=== PATIENT | male | born 1980 | race African-American/Black ===

== ENCOUNTER 2020-12-20 20:51 | Emergency (ER) | payer MEDICAID ==
[~2020-12-20] VITALS: Ht 185.4 cm; Wt 100.0 kg
[2020-12-20 22:31] VITALS: BP 157/91
== END 2020-12-20 23:03 | disposition home or self-care (01) ==
LOC: ER 20:51 → EDBD 20:51 → ER 23:03
DX: F16.129 Hallucinogen abuse with intoxication, unspecified (principal); R03.0 Elevated blood-pressure reading, without diagnosis of hypertension; F17.200 Nicotine dependence, unspecified, uncomplicated
CPT/HCPCS: 82962; 93005; 99283

== ENCOUNTER 2021-03-26 01:50 | Emergency (ER) | payer MEDICAID, OTHER ==
[~2021-03-26] VITALS: Ht 188 cm; Wt 90.0 kg
[2021-03-26 02:39] VITALS: BP 125/70
== END 2021-03-26 10:10 | disposition home or self-care (01) ==
LOC: ER 01:50
DX: R45.851 Suicidal ideations (principal); F19.10 Other psychoactive substance abuse, uncomplicated; F20.9 Schizophrenia, unspecified
CPT/HCPCS: 99283; Z7610

== ENCOUNTER 2022-05-08 15:58 | Emergency (ER) | payer MEDICAID, OTHER ==
[~2022-05-08] VITALS: Ht 185.4 cm; Wt 90.0 kg
[2022-05-08 16:07] VITALS: BP 150/100
[2022-05-08] MEDS ORDERED: ACETAMINOPHEN 325MG TABLET PO ONE (16:45)
[2022-05-09] MEDS ORDERED: ACETAMINOPHEN 325MG TABLET PO NR (03:45)
== END 2022-05-09 09:30 | disposition home or self-care (01) ==
LOC: ER 15:58
DX: S00.03XA Contusion of scalp, initial encounter (principal); V49.49XA Driver injured in collision with other motor vehicles in traffic accident, initial encounter; Y93.89 Activity, other specified; Y92.89 Other specified places as the place of occurrence of the external cause; Y99.8 Other external cause status; Z99.3 Dependence on wheelchair; I10 Essential (primary) hypertension; F20.9 Schizophrenia, unspecified; F16.10 Hallucinogen abuse, uncomplicated
CPT/HCPCS: 99284